=== PATIENT | male | born 2000 | race Native Hawaiian/Other Pacific Islander ===

== ENCOUNTER 2024-02-07 19:47 | Emergency (ER) | payer SELFPAY ==
[2024-02-07 20:16] VITALS: BP 172/99; PULSE 74; RESP 17; TEMP 36.8; O2SAT 98; BMI 29.9
[2024-02-07] MEDS: amoxicillin-clav 875-125 mg Tablet 1 TAB PO (20:44)
[2024-02-07] MEDS: dexamethasone 10 mg/mL INJ IM (20:44)
[2024-02-07] MEDS: lidocaine 2% viscous 15 mL UDC 10 ML TOPICAL (20:44)
[2024-02-07 21:03] VITALS: BP 148/91; PULSE 69; RESP 16; TEMP 36.8; O2SAT 99
--- NOTE | 2024-02-07 21:34 | ED_ITS ---
Documented by User: [email or web address] Del Rosario 02/07/24 21:38 HPI - Dental/Oral General: Chief complaint: Dental/Oral Stated complaint: Tooth Ache Time Seen by Provider: 02/07/24 20:22 Source: patient Mode of arrival: ambulatory Limitations: no limitations History of Present Illness: Patient is a 23-year-old male presenting to the emergency department complaining of left lower dental pain onset past few days. History of similar, states he has never been diagnosed with dental abscess however. Does not receive regular dental care, states every time he tries to call they are too backed up. He notes that normally he is able to control dental pain with ibuprofen, however this pain has gotten so severe to where this does not help. He reports history of poor dentition, notes that the pain is starting to spread down his left neck and up towards his left ear. Pain is worse with swallowing. No other symptoms reported at this time he is noted to be afebrile on arrival. MD Complaint: tooth pain Onset (ago): day(s) Duration: constant Severity: severe Relieving factors: nothing Exacerbating factors: swallowing Context: history of dental caries and poor dental care Associated symptoms: Reports ear or mastoid pain and odynophagia; Denies fever(s) Treatment prior to arrival: oral analgesic Related Data Previous Rx's Medication Instructions Recorded amoxicillin 875 mg-potassium 1 tab PO BID 10 days #20 tabs 02/07/24 clavulanate 125 mg tablet lidocaine HCl 2 % mucosal solution 10 ml mucous membrane Q4H PRN pain 02/07/24 (Lidocaine Viscous) #100 mL prednisone 20 mg tablet 60 mg (3 x 20 mg) PO ONCE 5 days 02/07/24 #15 tabs Allergies Allergy/AdvReac Type Severity Reaction Status Date / Time No Known Allergies Allergy Verified 02/07/24 20:19 Review of Systems General: Reports: 10 or more systems reviewed and unremarkable except in HPI and below Const: Denies: fever(s), chills or fatigue Eyes: Denies: change in vision ENMT: Reports: odynophagia, dental pain and ear or mastoid pain; Denies: throat pain or nasal discharge Card: Denies: chest pain, palpitations, swelling of feet/ankles or lightheadedness Resp: Denies: dyspnea, productive cough or wheezing GI: Denies: abdominal pain, nausea, vomiting, diarrhea or constipation : Denies: flank pain, difficulty urinating, dysuria or urinary frequency Musc: Reports: neck pain; Denies: back pain or joint pain Skin/Breast: Denies: rash Neuro: Denies: headache(s), numbness in extremities or weakness in extremities Physical Exam Const: COMMON NORMALS: no limitations GENERAL APPEARANCE: cooperative, well developed and in distress (Appears uncomfortable from dental pain) ORIENTATION/CONSCIOUSNESS: Yes awake HENMT: COMMON NORMALS: normocephalic, atraumatic and hearing grossly normal bilaterally HEAD & SCALP: normocephalic and atraumatic FACE & SINUS: normal facial exam MOUTH: Normal oral and palatal mucosa present and lip normal TEETH & GINGIVA: Yes abnormal tooth and associated gingiva lower left tender, avulsed, with associated gingival edema and dentin fractured, Yes multiple restorations and Yes poor dentition THROAT: posterior oropharynx normal, tonsils normal and uvula midline Eye: COMMON NORMALS: Equal, round and reactive pupils present, EOMs intact bi laterally and conjunctivae normal CONJUNCTIVA: Yes conjunctivae normal PUPIL: Yes Equal, round and reactive pupils present Neck/C-Spine: COMMON NORMALS: full ROM, supple and no JVD Resp: COMMON NORMALS: normal respiratory effort, No retractions, No use of accessory muscles and clear to auscultation bilaterally AUSCULTATION: clear to auscultation bilaterally Cardio: COMMON NORMALS: no JVD, regular rate, regular rhythm, No clicks present (Cardio), No murmurs present (Cardio) and No rub (Cardio) RATE: regular rate RHYTHM: regular rhythm Extremity: COMMON NORMALS: normal to inspection, full ROM and capillary refill normal Skin: COMMON NORMALS: no rashes or lesions noted GENERAL SKIN EXAM: no rashes or lesions noted Course Vital Signs: Vital signs: Vital Signs Temperature 98.3 F 02/07/24 21:03 Pulse Rate 69 02/07/24 21:03 Respiratory Rate 16 02/07/24 21:03 Blood Pressure 148/91 02/07/24 21:03 Pulse Oximetry 99 02/07/24 21:03 Oxygen Delivery Me thod Room Air 02/07/24 20:16 MDM - Dental/Oral Medical Decision Making Patient presented with clinical signs and symptoms of a dental abscess, potentially complicated by fractured dentin/nail of the left lower dentition. He has poor dental care and does not see a dentist, however is thoroughly advised to get in contact with 1 to schedule appointment. In the meantime we will treat with steroids and antibiotics for potential dental abscess, as he was noting radiation of the pain towards the ear and down into the neck. On examination of the oropharynx there did not appear to be any clinical signs or symptoms of a retropharyngeal or peritonsillar abscess. However he is informed that if he has any difficulties with breathing or worsening of symptoms to return for evaluation of these. He is given viscous lidocaine here in the emergency department along with his first doses of steroid antibiotics, and discharged home at this time. No radiology studies performed this visit Discharge Plan Discharge Patient Disposition: Home Clinical Impression: Dental abscess Fracture of tooth Qualifiers: Encounter type: initial encounter Fracture type: closed Qualified Code(s): S02.5XXA - Fracture of tooth (traumatic), initial encounter for closed fracture Condition: Stable Prescriptions: New prednisone 20 mg tablet 60 mg PO ONCE 5 Days Qty: 15 0RF amoxicillin-pot clavulanate 875-125 mg tablet 1 tab PO BID 10 Days Qty: 20 0RF Lidocaine Viscous 2 % solution 10 ml mucous membrane Q4H PRN (Reason: pain) Qty: 100 0RF Discharge Orders: Discharge ED (Routine); Ordered 02/07/24 Ordered By: Royce Armstrong Discharge Diet: Usual diet Discharge Activity: Increase activity as tolerated Patient Instructions: Dental Abscess (ED) Activity Restrictions/Additional Instructions: Take antibiotics as prescribed. Steroids as prescribed. Viscous lidocaine for added relief. Please call dentist office on Friday to schedule appointment. Return with any new or worsening. Coding Level of Care Code ED Credit Risk Manager for Chg Fwd Documented by User: Robb Poe, 02/08/24 02:02 HPI - Dental/Oral General: Chief complaint: Dental/Oral Stated complaint: Tooth Ache Time Seen by Provider: 02/07/24 20:22 Related Data Previous Rx's Medication Instructions Recorded amoxicillin 875 mg-potassium 1 tab PO BID 10 days #20 tabs 02/07/24 clavulanate 125 mg tablet lidocaine HCl 2 % mucosal solution 10 ml mucous membrane Q4H PRN pain 02/07/24 (Lidocaine Viscous) #100 mL prednisone 20 mg tablet 60 mg (3 x 20 mg) PO ONCE 5 days 02/07/24 #15 tabs Allergies Allergy/AdvReac Type Severity Reaction Status Date / Time No Known Allergies Allergy Verified 02/07/24 20:19 Course Vital Signs: Vital signs: Vital Signs Temperature 98.3 F 02/07/24 21:03 Pulse Rate 69 02/07/24 21:03 Respiratory Rate 16 02/07/24 21:03 Blood Pressure 148/91 02/07/24 21:03 Pulse Oximetry 99 02/07/24 21:03 Oxygen Delivery Me thod Room Air 02/07/24 20:16 MDM - Dental/Oral Medical Decision Making Patient presented with clinical signs and symptoms of a dental abscess, potentially complicated by fractured dentin/nail of the left lower dentition. He has poor dental care and does not see a dentist, however is thoroughly advised to get in contact with 1 to schedule appointment. In the meantime we will treat with steroids and antibiotics for potential dental abscess, as he was noting radiation of the pain towards the ear and down into the neck. On examination of the oropharynx there did not appear to be any clinical signs or symptoms of a retropharyngeal or peritonsillar abscess. However he is informed that if he has any difficulties with breathing or worsening of symptoms to return for evaluation of these. He is given viscous lidocaine here in the emergency department along with his first doses of steroid antibiotics, and discharged home at this time. This patient was originally seen by Mr. Patti PA-C.? I agree with his history, evaluation, and treatment. Discharge Plan Discharge Patient Disposition: Home Clinical Impression: Dental abscess Fracture of tooth Qualifiers: Encounter type: initial encounter Fracture type: closed Qualified Code(s): S02.5XXA - Fracture of tooth (traumatic), initial encounter for closed fracture Condition: Stable Prescriptions: New prednisone 20 mg tablet 60 mg PO ONCE 5 Days Qty: 15 0RF amoxicillin-pot clavulanate 875-125 mg tablet 1 tab PO BID 10 Days Qty: 20 0RF Lidocaine Viscous 2 % solution 10 ml mucous membrane Q4H PRN (Reason: pain) Qty: 100 0RF Discharge Orders: Discharge ED (Routine); Ordered 02/07/24 Ordered By: Royce Armstrong Discharge Diet: Usual diet Discharge Activity: Increase activity as tolerated Patient Instructions: Dental Abscess (ED) Activity Restrictions/Additional Instructions: Take antibiotics as prescribed. Steroids as prescribed. Viscous lidocaine for added relief. Please call dentist office on Friday to schedule appointment. Return with any new or worsening. Coding Level of Care Code ED Credit Risk Manager for Iza Mckay
== END 2024-02-07 20:51 | disposition home or self-care (01) ==
PROVIDERS: Emergency Provider Physician Assistant
DX: K04.7 Periapical abscess without sinus (principal); S02.5XXA Fracture of tooth (traumatic), initial encounter for closed fracture; X58.XXXA Exposure to other specified factors, initial encounter
CPT/HCPCS: 96372; 99284; J1100